=== PATIENT | male | born 1975 | race Caucasian/White ===

== ENCOUNTER → 2016-10-25 | Outpatient (CLI) | payer OTHER | END | disposition home or self-care (01) | LOC: GMAL 18:03 | PROVIDERS: ATTEND Family Medicine | DX: R30.0 Dysuria (principal) ==

== ENCOUNTER → 2018-12-25 | Outpatient (CLI) | payer OTHER | LOC: GMAL 10:28 | PROVIDERS: ATTEND Family Medicine | DX: Z00.00 Encounter for general adult medical examination without abnormal findings (principal); E29.8 Other testicular dysfunction; R53.82 Chronic fatigue, unspecified; E55.9 Vitamin D deficiency, unspecified ==

== ENCOUNTER → 2019-01-19 | Outpatient (CLI) | payer OTHER ==
--- NOTE | 2019-01-19 09:58 | RAD ---
EXAM DESCRIPTION: Elbow,Right 3 Views CLINICAL HISTORY: M25.521. Pain. COMPARISON: None Available. TECHNIQUE: AP, Lateral, and Oblique FINDINGS/IMPRESSION: Three-view right elbow demonstrate no acute displaced fracture or dislocation. No focal bony erosion or aggressive periosteal reaction. Mild osteoarthritic changes noted with small marginal osteophyte formation at the radiocapitellar joint. Bulky olecranon enthesophyte measures up to 1.5 cm. There is no radiopaque foreign body. IMPRESSION: 1. No acute osseous abnormality. 2. Bulky right posterior olecranon enthesophyte. Electronically signed by: Duncan Calzada DO 01/19/2019 9:56 AM CDT
== END ==
LOC: RAD 08:17
PROVIDERS: ATTEND Orthopaedic Surgery
DX: M25.521 Pain in right elbow (principal); M77.8 Other enthesopathies, not elsewhere classified

== ENCOUNTER → 2019-12-17 | Outpatient (CLI) | payer OTHER | LOC: GMAL 17:10 | PROVIDERS: ATTEND Family Medicine | DX: K21.9 Gastro-esophageal reflux disease without esophagitis (principal) ==